=== PATIENT | female | born 1940 | race Hispanic/Latino ===

== ENCOUNTER 2017-06-06 09:50 | Inpatient (IN) | payer MEDICARE, OTHER ==
[2017-06-06 09:55] VITALS: BMI 21.0
[2017-06-06] MEDS ORDERED: Naproxen 550 mg Tab PO STA (10:41)
[2017-06-06] MEDS ORDERED: Naproxen 550 mg Tab PO ONE (10:46)
--- NOTE | 2017-06-06 11:17 | RAD ---
PROCEDURE: Radiographs of the pelvis and bilateral hips HISTORY: Left hip pain, evaluate for fracture COMPARISON: None. FINDINGS: BONES: The pelvic ring is intact. There is no acute displaced fracture or bone destruction. There is diffuse bone demineralization. JOINTS: There is mild degenerative osteoarthrosis in the hip joints, worse on the right. The sacroiliac joints are normal. SOFT TISSUES: Normal. OTHER FINDINGS: None. IMPRESSION: No acute displaced fracture or dislocation. Please note occult fractures cannot be excluded on plain radiographs. If there is a persistent clinical concern, an MRI of the hip may be performed for further evaluation.
--- NOTE | 2017-06-06 11:44 | C.PDOC ---
History Of Present Illness 76-year-old female presents to the emergency department with complaints of non- traumatic left hip pain that started three days ago. Pain is primarily in hip, radiates through buttock and down her left leg. She denies any falls or injuries. Patient also denies abdominal pain, flank pain, vomiting/diarrhea, dysuria/hematuria, fever. No other complaints at this time. Time Seen by Provider: 06/06/17 10:12 Chief Complaint (Nursing): Hip Pain History Per: Patient History/Exam Limitations: no limitations Onset/Duration Of Symptoms: Days (3) Current Symptoms Are (Timing): Still Present Severity: Moderate Past Medical History Reviewed: Historical Data, Nursing Documentation, Vital Signs Vital Signs: Last Vital Signs Temp 98.8 F 06/10/17 07:10 Pulse 75 06/10/17 07:10 Resp 18 06/10/17 07:10 BP 154/89 H 06/10/17 10:50 Pulse Ox 99 06/10/17 07:10 - Medical History PMH: Arthritis, Diabetes, HTN, Hypercholesterolemia, Osteoporosis - [facility] Procedures DX ULTRASOUND-DIGESTIVE (01/20/12) ESOPHAGOGASTRODUODENOSCOPY [EGD] W/CLOSED BIOPSY (01/20/12) Family History: States: No Known Family Hx - Social History Hx Tobacco Use: No Hx Alcohol Use: No Hx Substance Use: No - Immunization History Hx Tetanus Toxoid Vaccination: No Hx Influenza Vaccination: No Hx Pneumococcal Vaccination: No Review Of Systems Except As Marked, All Systems Reviewed And Found Negative. Constitutional: Negative for: Fever, Chills Respiratory: Negative for: Shortness of Breath Gastrointestinal: Negative for: Nausea, Vomiting, Abdominal Pain Musculoskeletal: Positive for: Other (Left hip pain). Negative for: Back Pain Neurological: Negative for: Weakness, Numbness Physical Exam - Physical Exam Appears: Well, Non-toxic, In Acute Distress (in moderate pain) Skin: Warm, Dry, No Rash Head: Atraumatic, Normacephalic Eye(s): bilateral: Normal Inspection Oral Mucosa: Moist Cardiovascular: Rhythm Regular, No Murmur Respiratory: Normal Breath Sounds, No Rales, No Rhonchi, No Wheezing Gastrointestinal/Abdominal: Normal Exam, Bowel Sounds, Soft, No Tenderness Back: Normal Inspection, No CVA Tenderness, No Vertebral Tenderness Extremity: No Pedal Edema, No Calf Tenderness, Capillary Refill (< 2 sec all digits ), No Deformity, No Swelling, Other (tenderness to palpation left gluteal and left hip area. ) Extremity: Left: Limited ROM To Joint (left hip), Bilateral: Atraumatic Pulses: Left Dorsalis Pedis: Normal, Right Dorsalis Pedis: Normal Neurological/Psych: Oriented x3, Normal Sensation ED Course And Treatment - Laboratory Results Result Diagrams: 06/09/17 07:18 06/09/17 07:18 O2 Sat by Pulse Oximetry: 98 (on RA) Pulse Ox Interpretation: Normal - Other Rad XR HIP X-Ray: Viewed By Me, Read By Radiologist Interpretation: Accession No. : [id number]. Patient Name / ID : HUEY Oscar / [id number]. Exam Date : 06/06/2017 10:45:17 ( Approved ). Study Comment : Sex / Age : F / 76Y. Creator : Milvia Zheng MD. Dictator : Milvia Zheng MD. [employer] He[employer] Installer : Manufacturing Quality Manager : Milvia Zheng MD. Approver2 : Report Date : 06/06/2017 11:16:37. My Comment : . PROCEDURE: Radiographs of the pelvis and bilateral hips. HISTORY: Left hip pain, evaluate for fracture. COMPARISON: None. FINDINGS: BONES: The pelvic ring is intact. There is no acute displaced fracture or bone destruction. There is diffuse bone demineralization. JOINTS: There is mild degenerative osteoarthrosis in the hip joints, worse on the right. The sacroiliac joints are normal. SOFT TISSUES: Normal. OTHER FINDINGS: None. IMPRESSION: No acute displaced fracture or dislocation. Please note occult fractures cannot be excluded on plain radiographs. If there is a persistent clinical concern, an MRI of the hip may be performed for further evaluation. - CT Scan/US CT PELVIS Other Rad Studies (CT/US): Read By Radiologist, Radiology Report Reviewed CT/US Interpretation: Accession No. : [id number]. Patient Name / ID : HUEY Oscar / [id number]. Exam Date : 06/06/2017 14:17:02 ( Approved ). Study Comment : Sex / Age : F / 76Y. Creator : Estela Maya. Dictator : Estela Maya. Hot Water He[employer] Installer : Manufacturing Quality Manager : Estela Maya. Approver2 : Report Date : 06/06/2017 15:18:23. My Comment : . PROCEDURE: CT Pelvis without contrast. HISTORY: LEFT HIP/ PELVIC PAIN. COMPARISON: None. TECHNIQUE: Contiguous axial images of the pelvis . No intravenous or oral contrast given. Coronal and sagittal reformats generated. Radiation dose: Total exam DLP = 233 mGy-cm. This CT exam was performed using one or more of the following dose reduction techniques: Automated exposure control, adjustment of the mA and/or kV according to patient size, and/or use of iterative reconstruction technique. FINDINGS: BLADDER: Moderately distended bladder otherwise unremarkable. REPRODUCTIVE ORGANS: Unremarkable. VISUALIZED BOWEL: Unremarkable. PERITONEUM: Unremarkable, as visualized. No free fluid. No free air. LYMPH NODES: Unremarkable. No enlarged lymph nodes. BONES: No fracture or focal lytic lesion. Few scattered benign-appearing bone islands -left sacral wing most notable. Bilateral sacroiliac sclerotic arthrosis to the right side greater than left. Inferior lumbar spondylosis, mild scoliosis and likely prominent disc bulging. Areas of relative mild osteopenia a benign-appearing are noted. No gross end of lytic lesions appreciated. VASCULATURE: Arterial vascular calcifications in each groin. OTHER FINDINGS: Mild bilateral superolateral hip joint space narrowing. No prominent spurring seen. IMPRESSION: No fracture or lytic lesion noted. The reason for patient's inability to walk is not appreciated on this exam. Mild lumbar spondylosis, disc space narrowing and disc bulging L4- 5. Bilateral sacroiliac sclerotic arthrosis right greater than left. Mild superolateral hip joint space narrowing ; study notable for paucity of significant appear hip joint spurring in this 76-year-old patient Progress Note: Patient given PO Naprosyn and Flexeril. PO Prednisone and IV morphine given due to perisistent pain. PT came and evaluated patient for walker training, however patient unable to ambulate with walker due to pain. Reevaluation Time: 12:45 Reassessment Condition: Unchanged (Patient unable to ambulate with walker after PO pain meds & prednisone. Blood work, UA, CT scan pelvis/hips ordered and reviewed.) - Physician Consult Information Physician Contacted: Boone Dodd Outcome Of Conversation: Discussed patient with Dr. Dodd, agrees with admission for intractable left hip/gluteal pain, inability to ambulate with walker. Orthopedic consult entered for Dr. Caceres. Disposition Counseled Patient/Family Regarding: Studies Performed, Diagnosis, Need For Followup, Rx Given - Disposition Disposition: HOME/ ROUTINE Disposition Time: 15:35 Condition: STABLE - POA Present On Arrival: None - Clinical Impression Clinical Impression: Piriformis syndrome of left side, Sciatic leg pain, Left hip pain, Intractable pain, Osteoarthritis, Unable to ambulate - Scribe Statement The provider has reviewed the documentation as recorded by the Scribe (Veena Mehta) All medical record entries made by the Scribe were at my direction and personally dictated by me. I have reviewed the chart and agree that the record accurately reflects my personal performance of the history, physical exam, medical decision making, and the department course for this patient. I have also personally directed, reviewed, and agree with the discharge instructions and disposition. Decision To Admit - Pt Status Changed To: Hospital Disposition Of: Observation - . Bed Request Type: Regular Admitting Physician: Boone Dodd Patient Diagnosis: Piriformis syndrome of left side, Sciatic leg pain, Left hip pain, Intractable pain, Unable to ambulate, Osteoarthritis
[2017-06-06] MEDS ORDERED: Sodium Chloride 0.9% 500 ML IV ONE ×2 (12:46→13:26)
[2017-06-06 13:43] LABS: BASO % 0.7 % (0.0-2.0); EOS % 0.1 % (0.0-4.0); HEMOGLOBIN 12.1 g/dL (11.0-16.0); LYMPH # 1.4 K/uL (1.0-4.3); LYMPH % 30.7 % (20.0-40.0); MEAN CELL VOLUME 92.9 fL (81.0-99.0); MEAN CORPUSCULAR HEMOGLOBIN 30.8 pg (27.0-31.0); MEAN CORPUSCULAR HGB CONC 33.2 g/dL (33.0-37.0); MEAN PLATELET VOLUME 8.8 fL (7.2-11.7); MONO # 0.2 K/uL (0.0-0.8); MONO % 4.3 % (0.0-10.0); NEUT # 2.9 K/uL (1.8-7.0); NEUT % 64.2 % (50.0-75.0); RBC 3.94 Mil/uL (3.80-5.20); RED CELL DISTRIBUTION WIDTH 13.1 % (11.5-14.5); WHITE BLOOD COUNT 4.5 K/uL (4.8-10.8)
[2017-06-06 13:59] LABS: ALB/GLOB RATIO 1.1 (1.0-2.1); ALBUMIN 3.8 g/dL (3.5-5.0); ALT/SGPT 26 U/L (9-52); AST/SGOT 23 U/L (14-36); BLOOD UREA NITROGEN 12 mg/dL (7-17); CALCIUM 8.3 mg/dl (8.6-10.4); GFR AFRICAN-AMERICAN > 60; GFR NON-AFRICAN AMERICAN > 60
[2017-06-06 14:21] LABS: SQUAMOUS EPITHIAL < 1 /hpf (0-5); URINE BILIRUBIN NEGATIVE (NEGATIVE); URINE BLOOD 1+ (NEGATIVE); URINE CLARITY Clear (Clear); URINE COLOR Straw (YELLOW); URINE GLUCOSE (UA) 1+ mg/dL (Normal); URINE LEUKOCYTE ESTERASE NEG Leu/uL (Negative); URINE NITRATE NEGATIVE (NEGATIVE); URINE PROTEIN NEGATIVE (NEGATIVE); URINE UROBILINOGEN NORMAL mg/dL (0.2-1.0)
--- NOTE | 2017-06-06 15:20 | CT ---
PROCEDURE: CT Pelvis without contrast HISTORY: LEFT HIP/PELVIC PAIN COMPARISON: None. TECHNIQUE: Contiguous axial images of the pelvis . No intravenous or oral contrast given. Coronal and sagittal reformats generated. Radiation dose: Total exam DLP = 233 mGy-cm. This CT exam was performed using one or more of the following dose reduction techniques: Automated exposure control, adjustment of the mA and/or kV according to patient size, and/or use of iterative reconstruction technique. FINDINGS: BLADDER: Moderately distended bladder otherwise unremarkable REPRODUCTIVE ORGANS: Unremarkable. VISUALIZED BOWEL: Unremarkable. PERITONEUM: Unremarkable, as visualized. No free fluid. No free air. LYMPH NODES: Unremarkable. No enlarged lymph nodes. BONES: No fracture or focal lytic lesion. Few scattered benign-appearing bone islands -left sacral wing most notable Bilateral sacroiliac sclerotic arthrosis to the right side greater than left Inferior lumbar spondylosis, mild scoliosis and likely prominent disc bulging. Areas of relative mild osteopenia a benign-appearing are noted. No gross end of lytic lesions appreciated. VASCULATURE: Arterial vascular calcifications in each groin OTHER FINDINGS: Mild bilateral superolateral hip joint space narrowing. No prominent spurring seen. IMPRESSION: No fracture or lytic lesion noted. The reason for patient's inability to walk is not appreciated on this exam. Mild lumbar spondylosis, disc space narrowing and disc bulging L4-5. Bilateral sacroiliac sclerotic arthrosis right greater than left. Mild superolateral hip joint space narrowing ; study notable for paucity of significant appear hip joint spurring in this 76-year-old patient
[2017-06-07] MEDS: (Novolog) Insulin Aspart, Recombinant 100 u/ml 10 ml vial SC SCH ×4 (06:56→21:33)
[2017-06-07] MEDS: Enoxaparin 40 mg Syringe SC SCH (09:21)
[2017-06-07] MEDS: Naproxen 275 mg Tab PO PRN (09:21)
--- NOTE | 2017-06-07 12:19 | CP.PCM.HP ---
Past Patient History - Past Social History Smoking Status: Never Smoked - CARDIAC Hx Hypercholesterolemia: Yes Hx Hypertension: Yes - NEUROLOGICAL Hx Paralysis: No - ENDOCRINE/METABOLIC Hx Diabetes Mellitus Type 2: Yes - HEMATOLOGICAL/ONCOLOGICAL Hx Blood Transfusions: No Hx Blood Transfusion Reaction: No - MUSCULOSKELETAL/RHEUMATOLOGICAL Hx Arthritis: Yes Hx Falls: No Hx Osteoporosis: Yes - PSYCHIATRIC Hx Substance Use: No - SURGICAL HISTORY Hx Surgeries: Yes (CATARACT, R KNEE, COLONOSCOY) - ANESTHESIA Hx Anesthesia: Yes Hx Anesthesia Reactions: No Hx Malignant Hyperthermia: No Meds Home Medications: Home Medication List Medication Instructions Recorded Confirmed Type Cyclobenzaprine [Cyclobenzaprine 10 mg PO BID PRN #15 tab 06/06/17 Rx HCl] Naproxen 375 mg PO BID PRN #25 tablet 06/06/17 Rx predniSONE [predniSONE Tab] 40 mg PO DAILY #6 tab 06/06/17 Rx Allergies/Adverse Reactions: Allergies Allergy/AdvReac Type Severity Reaction Status Date / Time No Known Allergies Allergy Verified 06/06/17 09:53 Results - Vital Signs Recent Vital Signs: Last Vital Signs Temp 98.3 F 06/07/17 08:20 Pulse 84 06/07/17 08:20 Resp 20 06/07/17 08:20 BP 131/75 06/07/17 09:20 Pulse Ox 98 06/07/17 08:20 - Labs Result Diagrams: 06/06/17 13:38 06/06/17 13:38 Labs: Laboratory Results - last 24 hr 06/06/17 06/06/17 06/06/17 13:38 13:38 14:11 WBC 4.5 L RBC 3.94 Hgb 12.1 Hct 36.6 MCV 92.9 MCH 30.8 MCHC 33.2 RDW 13.1 Plt Count 288 MPV 8.8 Neut % (Auto) 64.2 Lymph % (Auto) 30.7 Clark % (Auto) 4.3 Eos % (Auto) 0.1 Baso % (Auto) 0.7 Neut # 2.9 Lymph # 1.4 Clark # 0.2 Eos # 0.0 Baso # 0.0 Sodium 137 Potassium 3.8 Chloride 101 Carbon Dioxide 28 Anion Gap 11 BUN 12 Creatinine 0.6 L Est GFR ( Amer) > 60 Est GFR (Non-Af Amer) > 60 POC Glucose (mg/dL) Random Glucose 156 H Calcium 8.3 L Total Bilirubin 0.5 AST 23 ALT 26 Alkaline Phosphatase 63 Total Protein 7.3 Albumin 3.8 Globulin 3.4 Albumin/Globulin Ratio 1.1 Urine Color Straw Urine Clarity Clear Urine pH 7.0 Ur Specific Primrose 1.006 Urine Protein Negative Urine Glucose (UA) 1+ Urine Ketones Negative Urine Blood 1+ H Urine Nitrate Negative Urine Bilirubin Negative Urine Urobilinogen Normal Ur Leukocyte Esterase Neg Urine WBC (Auto) 1 Urine RBC (Auto) 2 Ur Squamous Epith Cells < 1 06/07/17 06/07/17 06:34 11:09 WBC RBC Hgb Hct MCV MCH MCHC RDW Plt Count MPV Neut % (Auto) Lymph % (Auto) Clark % (Auto) Eos % (Auto) Baso % (Auto) Neut # Lymph # Clark # Eos # Baso # Sodium Potassium Chloride Carbon Dioxide Anion Gap BUN Creatinine Est GFR ( Amer) Est GFR (Non-Af Amer) POC Glucose (mg/dL) 104 117 H Random Glucose Calcium Total Bilirubin AST ALT Alkaline Phosphatase Total Protein Albumin Globulin Albumin/Globulin Ratio Urine Color Urine Clarity Urine pH Ur Specific Primrose Urine Protein Urine Glucose (UA) Urine Ketones Urine Blood Urine Nitrate Urine Bilirubin Urine Urobilinogen Ur Leukocyte Esterase Urine WBC (Auto) Urine RBC (Auto) Ur Squamous Epith Cells
--- NOTE | 2017-06-07 15:25 | CP.PCM.CON ---
History of Present Illness - History of Present Illness History of Present Illness: Orthopedic consultation Dr. perez 76F complains of left sided gluteal pain shooting down her leg, and says the pain is just below knee on the outside of her leg. She denies any trauma falls. Denies history of this pain, denies history of back pain. Denies numbness/ tingling. She says the pain is worst when she is walking and the pain in her leg is so severe she can not walk. She says the pain is best lying on side with knees up. She denies groin pain. Denies any leg pain prior to this episode. No change in bowel or bladder habits. Review of Systems - Review of Systems All systems: reviewed and no additional remarkable complaints except - Constitutional Additional comments: no fever/chills/recent illness - Cardiovascular Additional comments: no CP - Musculoskeletal Musculoskeletal: As Per HPI - Integumentary Additional comments: no swelling/ redness - Neurological Neurological: As Per HPI - Hematologic/Lymphatic Hematologic: absent: As Per HPI, Easy Bleeding, Easy Bruising, Lymphadenopathy, Other Past Patient History - Past Medical History & Family History Past Medical History?: Yes Past Family History: Reviewed and not pertinent - Past Social History Smoking Status: Never Smoked - CARDIAC Hx Hypercholesterolemia: Yes Hx Hypertension: Yes - NEUROLOGICAL Hx Paralysis: No - ENDOCRINE/METABOLIC Hx Diabetes Mellitus Type 2: Yes - HEMATOLOGICAL/ONCOLOGICAL Hx Blood Transfusions: No Hx Blood Transfusion Reaction: No - MUSCULOSKELETAL/RHEUMATOLOGICAL Hx Arthritis: Yes Hx Falls: No Hx Osteoporosis: Yes - PSYCHIATRIC Hx Substance Use: No - SURGICAL HISTORY Hx Surgeries: Yes (CATARACT, R KNEE, COLONOSCOY) - ANESTHESIA Hx Anesthesia: Yes Hx Anesthesia Reactions: No Hx Malignant Hyperthermia: No Meds Home Medications: Home Medication List Medication Instructions Recorded Confirmed Type Cyclobenzaprine [Cyclobenzaprine 10 mg PO BID PRN #15 tab 06/06/17 Rx HCl] Naproxen 375 mg PO BID PRN #25 tablet 06/06/17 Rx predniSONE [predniSONE Tab] 40 mg PO DAILY #6 tab 06/06/17 Rx Allergies/Adverse Reactions: Allergies Allergy/AdvReac Type Severity Reaction Status Date / Time No Known Allergies Allergy Verified 06/06/17 09:53 - Medications Medications: Current Medications Cyclobenzaprine HCl (Flexeril) 10 mg PO BID PRN PRN Reason: Arthritis Enalapril Maleate (Vasotec) 20 mg PO DAILY [facility] Last Admin: 06/07/17 09:20 Dose: 20 mg Enoxaparin Sodium (Lovenox) 40 mg SC DAILY [facility] Last Admin: 06/07/17 09:21 Dose: 40 mg Insulin Aspart (Novolog) 0 unit SC ACHS [facility] PRN Reason: Protocol Last Admin: 06/07/17 12:21 Dose: Not Given Metformin HCl (Glucophage) 500 mg PO BID [facility] Last Admin: 06/07/17 09:20 Dose: 500 mg Morphine Sulfate (Morphine) 2 mg IVP Q4 PRN PRN Reason: pain Naproxen (Anaprox) 275 mg PO BID PRN PRN Reason: Pain, moderate (4-7) Last Admin: 06/07/17 09:21 Dose: 275 mg Prednisone (Prednisone Tab) 40 mg PO DAILY [facility] Last Admin: 06/07/17 09:20 Dose: 40 mg Rosuvastatin Calcium (Crestor) 5 mg PO QPM [facility] Physical Exam - Constitutional Appears: Well Additional comments: no acute distress sitting on EOB noted severe pain and reluctance to put left leg down when walking - Expanded Lower Extremities Exam Left Hip exam: full ROM (no pain with full active and passive motion of left hip, no crepitus) Knee exam: full ROM, normal inspection (non tender to knee, no erythema, no effusion, no lax to varus/valgus, no tenderness to knee/lower leg at area patient feels pain) - Neurological Exam Neurological exam: Alert, Oriented x3 - Expanded Neurological Exam Expanded Sensory exam: Lower Extremity Light Touch: Normal (bilaterally) Neuro motor strength exam: Left Lower Extremity: 4 (4/5 great toe ext, DF, 4+/5 PF, 5/5 knee flex/ext), Right Lower Extremity: 5 (DF/PF, great toe extension, knee flex/ext) DTR: Patellar Left: 2+, Patellar Right: 2+ - Psychiatric Exam Psychiatric exam: Normal Affect, Normal Mood - Skin Skin Exam: Dry, Intact, Normal Color, Warm Results - Vital Signs Recent Vital Signs: Last Vital Signs Temp 98.9 F 06/07/17 15:21 Pulse 103 H 06/07/17 15:21 Resp 18 06/07/17 15:21 BP 145/64 06/07/17 15:21 Pulse Ox 100 06/07/17 15:21 - Labs Result Diagrams: 06/06/17 13:38 06/06/17 13:38 Labs: Laboratory Results - last 24 hr 06/07/17 06/07/17 06:34 11:09 POC Glucose (mg/dL) 104 117 H Assessment & Plan (1) Lumbar back pain with radiculopathy affecting left lower extremity Assessment and Plan: left gluteal and LLE pain r/o spinal stenosis, disc disease, LLE radiculopathy minimal hip DJD on imaging not consistent with symptoms MRI lumbar spine thoracic xrays show ?small compression fractures but patient without mid back pain VTE proph plan PT/OT referral NSAIDs patient states she is anxious about pain during MRI, valium ordered x 1 d/w Dr. perez, agrees with above Status: Acute Radiology Interpretation - Radiology Interpretation #2 Interpretation: Patient Name / ID : HUEY Oscar / [id number] Exam Date : 06/07/2017 10:08:10 ( Approved ) Study Comment : Sex / Age : F / 76Y Creator : Bill Lyon RT Dictator : Marcial Neumann MD Shoulder Boner : [employer] Lab Technician : Marcial Neumann MD Approver2 : Report Date : 06/07/2017 10:38:32 My Comment : PROCEDURE: Cervical Spine Radiographs. HISTORY: Pain. COMPARISON: None. FINDINGS: BONES: Slight reversal of cervical curvature is identified. No definite fracture or spondylolisthesis is appreciated. Marked endplate degenerative changes are appreciate the mid to inferior cervical spine multiple levels particularly, particularly at the C6-7 level with prominent osteophytic ridging ridging accompanying this pattern. No destructive focal bony lesion is appreciated throughout. Multilevel facet joint degenerative arthropathy is appreciated diffusely. The amount process grossly appears intact. Mildly degenerated C1-2 articulation is appreciated the craniocervical junction appears intact. Prevertebral paraspinal soft tissues appear diffusely unremarkable. SOFT TISSUES: Normal. No prevertebral soft tissue swelling. OTHER FINDINGS: None. IMPRESSION: Slight reversal the cervical curvature without fracture or spondylolisthesis. Advanced multilevel cervical spondylosis is appreciate as well as multilevel facet joint arthropathy. Patient Name / ID : HUEY Oscar / [id number] Exam Date : 06/07/2017 10:07:04 ( Approved ) Study Comment : Sex / Age : F / 76Y Creator : Bill Lyon Dictator : Marcial Neumann MD Shoulder Boner : [employer] Lab Technician : Marcial Neumann MD Approver2 : Report Date : 06/07/2017 10:38:32 My Comment : HISTORY: LEFT LEG PAIN. ENTIRE SPINE. COMPARISON: Chest radiograph 02/05/2015. FINDINGS: BONES: A kyphoscoliotic deformity is appreciated at the upper mid thoracic spine without definite acute fracture or spondylolisthesis identified. Multilevel degenerative spondylosis appreciated diffusely. Likely minimal low mid thoracic spine compression fractures are identified causing a hyper kyphotic deformity increased in curvature compared to prior chest radiograph 02/05/2015. No destructive bony lesions appreciated focally. Diffuse osteopenia suggests osteoporosis. SOFT TISSUES: Normal. OTHER FINDINGS: None. IMPRESSION: No definite acute fracture or spondylolisthesis appreciated. A kyphoscoliotic deformity is appreciated with likely minimal mid thoracic spinal compression fractures identified as the etiology for hyper kyphotic deformity. atient Name / ID : HUEY Oscar / [id number] Exam Date : 06/07/2017 10:05:49 ( Approved ) Study Comment : Sex / Age : F / 76Y Creator : Marcial Neumann MD Dictator : Marcial Neumann MD Shoulder Boner : [employer] Lab Technician : Marcial Neumann MD Approver2 : Report Date : 06/07/2017 16:12:20 My Comment : PROCEDURE: Radiographs of the Lumbar Spine. HISTORY: left leg pain COMPARISON: No prior. FINDINGS: BONES: Minimal levoscoliotic deformity. No acute fracture. Spondylolisthesis at L4-5 is seen with L4 anterior to L5 by less than 1 cm. This is likely on the basis of facet joint degenerative arthropathy as no obvious spondylolysis is evident. However oblique lumbar spine radiographs or cross-sectional imaging would be superior than standard radiography in evaluating for possible spondylolysis. Multilevel spondylosis appears mild DISC SPACES: Disc heights appear adequately preserved as well as vertebral body heights. OTHER FINDINGS: Diffuse osteopenia suggests osteoporosis. IMPRESSION: Multilevel lumbar spondylosis appears mild. Limited grade 1 spondylolisthesis L4-5. Diffuse osteopenia suggests osteoporosis. - Radiology Interpretation #3 Interpretation: Patient Name / ID : HUEY SIDHU E / [id number] Exam Date : 06/06/2017 14:17:02 ( Approved ) Study Comment : Sex / Age : F / 76Y Creator : Estela Maya Dictator : Estela Maya Shoulder Boner : [employer] Lab Technician : Estela Maya Approver2 : Report Date : 06/06/2017 15:18:23 My Comment : PROCEDURE: CT Pelvis without contrast HISTORY: LEFT HIP/PELVIC PAIN COMPARISON: None. TECHNIQUE: Contiguous axial images of the pelvis . No intravenous or oral contrast given. Coronal and sagittal reformats generated. Radiation dose: Total exam DLP = 233 mGy-cm. This CT exam was performed using one or more of the following dose reduction techniques: Automated exposure control, adjustment of the mA and/or kV according to patient size, and/or use of iterative reconstruction technique. FINDINGS: BLADDER: Moderately distended bladder otherwise unremarkable REPRODUCTIVE ORGANS: Unremarkable. VISUALIZED BOWEL: Unremarkable. PERITONEUM: Unremarkable, as visualized. No free fluid. No free air. LYMPH NODES: Unremarkable. No enlarged lymph nodes. BONES: No fracture or focal lytic lesion. Few scattered benign-appearing bone islands - left sacral wing most notable Bilateral sacroiliac sclerotic arthrosis to the right side greater than left Inferior lumbar spondylosis, mild scoliosis and likely prominent disc bulging. Areas of relative mild osteopenia a benign-appearing are noted. No gross end of lytic lesions appreciated. VASCULATURE: Arterial vascular calcifications in each groin OTHER FINDINGS: Mild bilateral superolateral hip joint space narrowing. No prominent spurring seen. IMPRESSION: No fracture or lytic lesion noted. The reason for patient's inability to walk is not appreciated on this exam. Mild lumbar spondylosis, disc space narrowing and disc bulging L4-5. Bilateral sacroiliac sclerotic arthrosis right greater than left. Mild superolateral hip joint space narrowing ; study notable for paucity of significant appear hip joint spurring in this 76-year-old patient
--- NOTE | 2017-06-07 15:36 | RAD ---
PROCEDURE: Cervical Spine Radiographs. HISTORY: Pain. COMPARISON: None. FINDINGS: BONES: Slight reversal of cervical curvature is identified. No definite fracture or spondylolisthesis is appreciated. Marked endplate degenerative changes are appreciate the mid to inferior cervical spine multiple levels particularly, particularly at the C6-7 level with prominent osteophytic ridging ridging accompanying this pattern. No destructive focal bony lesion is appreciated throughout. Multilevel facet joint degenerative arthropathy is appreciated diffusely. The amount process grossly appears intact. Mildly degenerated C1-2 articulation is appreciated the craniocervical junction appears intact. Prevertebral paraspinal soft tissues appear diffusely unremarkable. SOFT TISSUES: Normal. No prevertebral soft tissue swelling. OTHER FINDINGS: None. IMPRESSION: Slight reversal the cervical curvature without fracture or spondylolisthesis. Advanced multilevel cervical spondylosis is appreciate as well as multilevel facet joint arthropathy.
--- NOTE | 2017-06-07 15:39 | RAD ---
HISTORY: LEFT LEG PAIN. ENTIRE SPINE. COMPARISON: Chest radiograph 02/05/2015. FINDINGS: BONES: A kyphoscoliotic deformity is appreciated at the upper mid thoracic spine without definite acute fracture or spondylolisthesis identified. Multilevel degenerative spondylosis appreciated diffusely. Likely minimal low mid thoracic spine compression fractures are identified causing a hyper kyphotic deformity increased in curvature compared to prior chest radiograph 02/05/2015. No destructive bony lesions appreciated focally. Diffuse osteopenia suggests osteoporosis. SOFT TISSUES: Normal. OTHER FINDINGS: None. IMPRESSION: No definite acute fracture or spondylolisthesis appreciated. A kyphoscoliotic deformity is appreciated with likely minimal mid thoracic spinal compression fractures identified as the etiology for hyper kyphotic deformity.
--- NOTE | 2017-06-07 16:19 | RAD ---
PROCEDURE: Radiographs of the Lumbar Spine. HISTORY: left leg pain COMPARISON: No prior. FINDINGS: BONES: Minimal levoscoliotic deformity. No acute fracture. Spondylolisthesis at L4-5 is seen with L4 anterior to L5 by less than 1 cm. This is likely on the basis of facet joint degenerative arthropathy as no obvious spondylolysis is evident. However oblique lumbar spine radiographs or cross-sectional imaging would be superior than standard radiography in evaluating for possible spondylolysis. Multilevel spondylosis appears mild DISC SPACES: Disc heights appear adequately preserved as well as vertebral body heights. OTHER FINDINGS: Diffuse osteopenia suggests osteoporosis. IMPRESSION: Multilevel lumbar spondylosis appears mild. Limited grade 1 spondylolisthesis L4-5. Diffuse osteopenia suggests osteoporosis.
--- NOTE | 2017-06-07 18:37 | MRI ---
PROCEDURE: MR LUMBAR SPINE WITHOUT CONTRAST HISTORY: LBP r/o LLE radiculopathy, stenosis COMPARISON: None available. TECHNIQUE: Multiecho multiplanar sequences were performed through the lumbar spine without the use of intravenous contrast. FINDINGS: The lumbar curvature is minimally ultra interrupted by grade 1 spondylolisthesis at L4-5 with L4 slightly anterior to L5 by less than 1 cm. This appears to be on the basis of facet arthropathy as spondylolysis is not definitively shown. Diffuse disc desiccation is appreciated with minimal disc height loss identified at L3-4. To body heights are normal. Benign hemangioma is appreciated L5 as well as L1 with no suspicious matter signal changes seen throughout the exam. Incidental benign hemangiomas are seen at T12 to body as well. The conus medullaris appears normal in intrinsic signal terminating at the T12 inferior endplate. Prevertebral paraspinal soft tissues appear diffusely on remarkable. Instill note is made of what appear to be parapelvic cysts at the left greater than right kidney midpole regions. T12-L1: No disc herniation, spinal canal stenosis or neural foraminal narrowing. Incidentally, T11-12 is essentially identical to this level. L1-2: No disc herniation, spinal canal stenosis or neural foraminal narrowing. A tiny right L1 nerve root cysts is appreciated at the distal foramen. L2-3: No disc herniation or spinal canal stenosis. [id number] facet joint degenerative changes are identified with limited disc bulging into the neural foramina causing borderline bilateral neural foraminal stenoses. L3-4: No disc herniation is identified with limited disc bulging present and moderate facet joint degenerative change. Borderline degenerative neural foraminal stenoses are identified. L4-5: No disc herniation is appreciated. Limited spondylolisthesis in gross foot facet joint degenerative arthropathy are identified with asymmetric left greater than right lateral recess stenosis identified. Moderate left and mild right neural foraminal stenosis is appreciated though the overall asymmetry felt to be a function of asymmetric facet joint degenerative definitive change. L5-S1: A generalized disc bulge appreciate with a small central disc protrusion indenting the ventral thecal sac and encroaching the descending bilateral proximal exiting L5 and descending S1 nerve roots without significant generalized central canal stenosis. Gross facet joint degenerative arthropathy contributes to this pattern with mild bilateral neural foraminal stenoses identified. OTHER FINDINGS: None. IMPRESSION: No severe stenosis or large disc herniation throughout the exam. Multilevel degenerative disc disease is appreciate as well as facet arthropathy seen worst at the inferior lumbar spine with multilevel lateral recess stenoses appreciated. A grade 1 spondylolisthesis identified minimally at L4-5, on a degenerative basis with left greater than right lateral recess stenosis appreciated but no generalized central canal stenosis. A small L5 cm protrusion overlies generalized disc bulging with both disc findings encroaching the descending the exiting bilateral L5 nerve roots minimally as well as the descending bilateral S1 nerve roots.
[2017-06-08] MEDS: (Novolog) Insulin Aspart, Recombinant 100 u/ml 10 ml vial SC SCH ×4 (08:04→21:49)
[2017-06-08] MEDS: Enoxaparin 40 mg Syringe SC SCH (09:36)
[2017-06-08] MEDS: Naproxen 275 mg Tab PO PRN (11:08)
--- NOTE | 2017-06-08 15:41 | CP.PCM.PN ---
Subjective - Date & Time of Evaluation Date of Evaluation: 06/08/17 Time of Evaluation: 15:36 - Subjective Subjective: Patient states she still can not put weight on her left leg. She says the medication is not controlling the pain. She lives alone, only has a couple stairs into home. Family at bedside. Review of Systems - Review of Systems All systems: reviewed and no additional remarkable complaints except - Cardiovascular Cardiovascular: UNREMARKABLE - Respiratory Respiratory: UNREMARKABLE - Gastrointestinal Gastrointestinal: UNREMARKABLE - Musculoskeletal Musculoskeletal: As Par HPI - Integumentary Integumentary: UNREMARKABLE - Neurological Neurological: As Per HPI - Endocrine Endocrine: UNREMARKABLE - Hematologic/Lymphatic Hematologic: UNREMARKABLE Objective - Vital Signs/Intake and Output Vital Signs (last 24 hours): Temp Pulse Resp BP Pulse Ox 97.4 F L 86 20 137/70 99 06/08/17 07:29 06/08/17 09:30 06/08/17 07:29 06/08/17 09:32 06/08/17 07:29 Intake and Output: 06/08/17 06/08/17 06:59 18:59 Intake Total 150 500 Balance 150 500 - Medications Medications: Current Medications Celecoxib (Celebrex) 200 mg PO BID [facility] Cyclobenzaprine HCl (Flexeril) 10 mg PO BID PRN PRN Reason: Arthritis Enalapril Maleate (Vasotec) 20 mg PO DAILY [facility] Last Admin: 06/08/17 09:32 Dose: 20 mg Enoxaparin Sodium (Lovenox) 40 mg SC DAILY [facility] Last Admin: 06/08/17 09:36 Dose: 40 mg Insulin Aspart (Novolog) 0 unit SC ACHS [facility] PRN Reason: Protocol Last Admin: 06/08/17 11:19 Dose: Not Given Metformin HCl (Glucophage) 500 mg PO BID [facility] Last Admin: 06/08/17 09:32 Dose: 500 mg Morphine Sulfate (Morphine) 2 mg IVP Q4 PRN PRN Reason: pain Prednisone (Prednisone Tab) 40 mg PO DAILY [facility] Last Admin: 06/08/17 09:32 Dose: 40 mg Rosuvastatin Calcium (Crestor) 5 mg PO QPM [facility] Last Admin: 06/07/17 18:02 Dose: 5 mg - Labs Labs: 06/06/17 13:38 06/06/17 13:38 - Constitutional Appears: Well, No Acute Distress - Extremities Exam Additional comments: LLE normal inspection, no swelling, non tender calves soft NT neg homans - Back Exam Back Exam: NORMAL INSPECTION Additional comments: B gluteal tenderness - Neurological Exam Neurological Exam: Alert, Awake, Oriented x3 Neuro motor strength exam: Left Lower Extremity: 4, Right Lower Extremity: 5 - Psychiatric Exam Psychiatric exam: Normal Affect, Normal Mood - Skin Skin Exam: Dry, Intact, Normal Color, Warm Assessment and Plan (1) Lumbar back pain with radiculopathy affecting left lower extremity Assessment & Plan: MRI reviewed, consistent with symptoms No acute pathology appreciated Recommend cont flexeril, will try celebrex instead of naproxen, lyrica recommend PT/OT recommend pain mgmt consultation (would be as outpatient) d/w Dr. Caceres, agrees with above no orthopedic intervention indicated Status: Acute Radiology Interpretation - Radiology Interpretation #2 Interpretation: Patient Name / ID : HUEY [id number] / [id number] Exam Date : 06/07/2017 17:18:33 ( Approved ) Study Comment : Sex / Age : F / 76Y Creator : Marcial Neumann MD Dictator : Marcial Neumann MD Program Control Analyst : Inspector Final Assembly Conveyor Line : Marical Neumann MD Approver2 : Report Date : 06/07/2017 18:35:45 My Comment : PROCEDURE: MR LUMBAR SPINE WITHOUT CONTRAST HISTORY: LBP r/o LLE radiculopathy, stenosis COMPARISON: None available. TECHNIQUE: Multiecho multiplanar sequences were performed through the lumbar spine without the use of intravenous contrast. FINDINGS: The lumbar curvature is minimally ultra interrupted by grade 1 spondylolisthesis at L4-5 with L4 slightly anterior to L5 by less than 1 cm. This appears to be on the basis of facet arthropathy as spondylolysis is not definitively shown. Diffuse disc desiccation is appreciated with minimal disc height loss identified at L3-4. To body heights are normal. Benign hemangioma is appreciated L5 as well as L1 with no suspicious matter signal changes seen throughout the exam. Incidental benign hemangiomas are seen at T12 to body as well. The conus medullaris appears normal in intrinsic signal terminating at the T12 inferior endplate. Prevertebral paraspinal soft tissues appear diffusely on remarkable. Instill note is made of what appear to be parapelvic cysts at the left greater than right kidney midpole regions. T12-L1: No disc herniation, spinal canal stenosis or neural foraminal narrowing. Incidentally, T11-12 is essentially identical to this level. L1-2: No disc herniation, spinal canal stenosis or neural foraminal narrowing. A tiny right L1 nerve root cysts is appreciated at the distal foramen. L2-3: No disc herniation or spinal canal stenosis. [id number] facet joint degenerative changes are identified with limited disc bulging into the neural foramina causing borderline bilateral neural foraminal stenoses. L3-4: No disc herniation is identified with limited disc bulging present and moderate facet joint degenerative change. Borderline degenerative neural foraminal stenoses are identified. L4-5: No disc herniation is appreciated. Limited spondylolisthesis in gross foot facet joint degenerative arthropathy are identified with asymmetric left greater than right lateral recess stenosis identified. Moderate left and mild right neural foraminal stenosis is appreciated though the overall asymmetry felt to be a function of asymmetric facet joint degenerative definitive change. L5-S1: A generalized disc bulge appreciate with a small central disc protrusion indenting the ventral thecal sac and encroaching the descending bilateral proximal exiting L5 and descending S1 nerve roots without significant generalized central canal stenosis. Gross facet joint degenerative arthropathy contributes to this pattern with mild bilateral neural foraminal stenoses identified. OTHER FINDINGS: None. IMPRESSION: No severe stenosis or large disc herniation throughout the exam. Multilevel degenerative disc disease is appreciate as well as facet arthropathy seen worst at the inferior lumbar spine with multilevel lateral recess stenoses appreciated. A grade 1 spondylolisthesis identified minimally at L4-5, on a degenerative basis with left greater than right lateral recess stenosis appreciated but no generalized central canal stenosis. A small L5 cm protrusion overlies generalized disc bulging with both disc findings encroaching the descending the exiting bilateral L5 nerve roots minimally as well as the descending bilateral S1 nerve roots.
--- NOTE | 2017-06-08 18:48 | CP.PCM.PN ---
Subjective - Date & Time of Evaluation Date of Evaluation: 06/08/17 Time of Evaluation: 18:48 Objective - Vital Signs/Intake and Output Vital Signs (last 24 hours): Temp Pulse Resp BP Pulse Ox 98.4 F 82 18 158/74 H 98 06/08/17 15:17 06/08/17 15:17 06/08/17 15:17 06/08/17 15:17 06/08/17 15:17 Intake and Output: 06/08/17 06/08/17 06:59 18:59 Intake Total 150 500 Balance 150 500 - Medications Medications: Current Medications Celecoxib (Celebrex) 200 mg PO BID [facility] Last Admin: 06/08/17 17:48 Dose: 200 mg Cyclobenzaprine HCl (Flexeril) 10 mg PO BID PRN PRN Reason: Arthritis Enalapril Maleate (Vasotec) 20 mg PO DAILY [facility] Last Admin: 06/08/17 09:32 Dose: 20 mg Enoxaparin Sodium (Lovenox) 40 mg SC DAILY [facility] Last Admin: 06/08/17 09:36 Dose: 40 mg Insulin Aspart (Novolog) 0 unit SC ACHS [facility] PRN Reason: Protocol Last Admin: 06/08/17 17:35 Dose: 2 unit Metformin HCl (Glucophage) 500 mg PO BID [facility] Last Admin: 06/08/17 17:48 Dose: 500 mg Morphine Sulfate (Morphine) 2 mg IVP Q4 PRN PRN Reason: pain Prednisone (Prednisone Tab) 40 mg PO DAILY [facility] Last Admin: 06/08/17 09:32 Dose: 40 mg Pregabalin (Lyrica) 75 mg PO BID [facility] Last Admin: 06/08/17 17:48 Dose: 75 mg Rosuvastatin Calcium (Crestor) 5 mg PO QPM [facility] Last Admin: 06/08/17 17:48 Dose: 5 mg - Labs Labs: 06/06/17 13:38 06/06/17 13:38
[2017-06-09 08:02] LABS: BASO % 0.4 % (0.0-2.0); EOS % 0.3 % (0.0-4.0); HEMOGLOBIN 11.7 g/dL (11.0-16.0); LYMPH # 3.3 K/uL (1.0-4.3); LYMPH % 45.5 % (20.0-40.0); MEAN CELL VOLUME 91.9 fL (81.0-99.0); MEAN CORPUSCULAR HEMOGLOBIN 31.2 pg (27.0-31.0); MEAN CORPUSCULAR HGB CONC 33.9 g/dL (33.0-37.0); MEAN PLATELET VOLUME 8.6 fL (7.2-11.7); MONO # 0.5 K/uL (0.0-0.8); MONO % 6.5 % (0.0-10.0); NEUT # 3.4 K/uL (1.8-7.0); NEUT % 47.3 % (50.0-75.0); NRBC % 0.3 % (0.0-2.0); RBC 3.76 Mil/uL (3.80-5.20); RED CELL DISTRIBUTION WIDTH 12.6 % (11.5-14.5)
[2017-06-09 08:05] LABS: WHITE BLOOD COUNT 7.2 K/uL (4.8-10.8)
[2017-06-09] MEDS: (Novolog) Insulin Aspart, Recombinant 100 u/ml 10 ml vial SC SCH ×4 (08:35→22:46)
[2017-06-09 09:13] LABS: BLOOD UREA NITROGEN 20 mg/dL (7-17); CALCIUM 8.6 mg/dl (8.6-10.4); GFR AFRICAN-AMERICAN > 60; GFR NON-AFRICAN AMERICAN > 60
[2017-06-09] MEDS: Enoxaparin 40 mg Syringe SC SCH (10:12)
--- NOTE | 2017-06-09 15:43 | CP.PCM.PN ---
Subjective - Date & Time of Evaluation Date of Evaluation: 06/09/17 Time of Evaluation: 15:43 - Subjective Subjective: Patient states the pain is getting a better, but she is still having pain. Pain is still in left lateral leg. Denies numbness/tingling. most of pain still localized to bach. Says she doesn't notice much difference in pain since starting new medication. Review of Systems - Review of Systems All systems: reviewed and no additional remarkable complaints except - Cardiovascular Cardiovascular: UNREMARKABLE - Respiratory Respiratory: UNREMARKABLE - Genitourinary Genitourinary: UNREMARKABLE - Musculoskeletal Musculoskeletal: As Par HPI - Integumentary Integumentary: UNREMARKABLE - Neurological Neurological: As Per HPI - Hematologic/Lymphatic Hematologic: UNREMARKABLE Objective - Vital Signs/Intake and Output Vital Signs (last 24 hours): Temp Pulse Resp BP Pulse Ox 97.8 F 80 20 160/87 H 97 06/09/17 07:30 06/09/17 07:30 06/09/17 07:30 06/09/17 10:12 06/09/17 07:30 Intake and Output: 06/09/17 06/09/17 06:59 18:59 Intake Total 480 400 Balance 480 400 - Medications Medications: Current Medications Celecoxib (Celebrex) 200 mg PO BID [facility] Last Admin: 06/09/17 10:21 Dose: 200 mg Cyclobenzaprine HCl (Flexeril) 10 mg PO BID PRN PRN Reason: Arthritis Last Admin: 06/09/17 10:11 Dose: 10 mg Enalapril Maleate (Vasotec) 20 mg PO DAILY [facility] Last Admin: 06/09/17 10:12 Dose: 20 mg Enoxaparin Sodium (Lovenox) 40 mg SC DAILY [facility] Last Admin: 06/09/17 10:12 Dose: 40 mg Insulin Aspart (Novolog) 0 unit SC ACHS [facility] PRN Reason: Protocol Last Admin: 06/09/17 12:10 Dose: Not Given Metformin HCl (Glucophage) 500 mg PO BID [facility] Last Admin: 06/09/17 10:12 Dose: 500 mg Morphine Sulfate (Morphine) 2 mg IVP Q4 PRN PRN Reason: pain Prednisone (Prednisone Tab) 40 mg PO DAILY [facility] Last Admin: 06/09/17 10:12 Dose: 40 mg Pregabalin (Lyrica) 75 mg PO BID [facility] Last Admin: 06/09/17 10:12 Dose: 75 mg Rosuvastatin Calcium (Crestor) 5 mg PO QPM [facility] Last Admin: 06/08/17 17:48 Dose: 5 mg - Labs Labs: 06/09/17 07:18 06/09/17 07:18 - Constitutional Appears: Well, No Acute Distress - Head Exam Head Exam: ATRAUMATIC - Respiratory Exam Respiratory Exam: NORMAL BREATHING PATTERN - Extremities Exam Additional comments: calves soft NT neg homans sensation intact BLE - Back Exam Back Exam: paraspinal tenderness - Neurological Exam Neurological Exam: Alert, Awake, Oriented x3 Neuro motor strength exam: Left Lower Extremity: 4 (with pain), Right Lower Extremity: 5 - Psychiatric Exam Psychiatric exam: Normal Affect, Normal Mood - Skin Skin Exam: Dry, Intact, Normal Color, Warm Assessment and Plan (1) Lumbar back pain with radiculopathy affecting left lower extremity Assessment & Plan: PT/OT NSaids lyrica flexeril PT/OT daily VTE proph no ortho intervention indicated recommend pain mgmt consult (as outpt, not available inpt) d/w Dr. perez, agrees with above Status: Acute
--- NOTE | 2017-06-09 15:55 | CP.PCM.PN ---
Subjective - Date & Time of Evaluation Date of Evaluation: 06/09/17 Time of Evaluation: 15:52 Objective - Vital Signs/Intake and Output Vital Signs (last 24 hours): Temp Pulse Resp BP Pulse Ox 97.8 F 80 20 160/87 H 97 06/09/17 07:30 06/09/17 07:30 06/09/17 07:30 06/09/17 10:12 06/09/17 07:30 Intake and Output: 06/09/17 06/09/17 06:59 18:59 Intake Total 480 400 Balance 480 400 - Medications Medications: Current Medications Celecoxib (Celebrex) 200 mg PO BID [facility] Last Admin: 06/09/17 10:21 Dose: 200 mg Cyclobenzaprine HCl (Flexeril) 10 mg PO BID PRN PRN Reason: Arthritis Last Admin: 06/09/17 10:11 Dose: 10 mg Enalapril Maleate (Vasotec) 20 mg PO DAILY [facility] Last Admin: 06/09/17 10:12 Dose: 20 mg Enoxaparin Sodium (Lovenox) 40 mg SC DAILY [facility] Last Admin: 06/09/17 10:12 Dose: 40 mg Insulin Aspart (Novolog) 0 unit SC ACHS [facility] PRN Reason: Protocol Last Admin: 06/09/17 12:10 Dose: Not Given Metformin HCl (Glucophage) 500 mg PO BID [facility] Last Admin: 06/09/17 10:12 Dose: 500 mg Morphine Sulfate (Morphine) 2 mg IVP Q4 PRN PRN Reason: pain Prednisone (Prednisone Tab) 40 mg PO DAILY [facility] Last Admin: 06/09/17 10:12 Dose: 40 mg Pregabalin (Lyrica) 75 mg PO BID [facility] Last Admin: 06/09/17 10:12 Dose: 75 mg Rosuvastatin Calcium (Crestor) 5 mg PO QPM [facility] Last Admin: 06/08/17 17:48 Dose: 5 mg - Labs Labs: 06/09/17 07:18 06/09/17 07:18
[2017-06-10] MEDS: (Novolog) Insulin Aspart, Recombinant 100 u/ml 10 ml vial SC SCH ×2 (08:36→13:06)
[2017-06-10 09:49] VITALS: PULSE 75; RESP 18; TEMP 98.8
[2017-06-10] MEDS: Enoxaparin 40 mg Syringe SC SCH (10:50)
[2017-06-10 10:51] VITALS: BP 154/89
--- NOTE | 2017-06-10 18:01 | CP.PCM.PN ---
Subjective - Date & Time of Evaluation Date of Evaluation: 06/10/17 Time of Evaluation: 11:00 - Subjective Subjective: alert, awake, no sob or chest pains. Objective - Vital Signs/Intake and Output Vital Signs (last 24 hours): Temp Pulse Resp BP Pulse Ox 98.8 F 75 18 154/89 H 99 06/10/17 07:10 06/10/17 07:10 06/10/17 07:10 06/10/17 10:50 06/10/17 07:10 Intake and Output: 06/10/17 06/10/17 06:59 18:59 Intake Total 495 400 Balance 495 400 - Labs Labs: 06/09/17 07:18 06/09/17 07:18 Assessment and Plan - Assessment and Plan (Free Text) Assessment: Patient is seen and examined. Alert, awake, complaints of left leg pain. Cleared by ortho for discharge home. Discussed with DR Dodd, plan to discharge home with home care, home PT for unsteady gait. Advised to follow up with PMD IN 1 WEEK.
[2017-06-12 04:50] VITALS: O2SAT 98
== END 2017-06-10 14:50 | disposition home health service (06) | DRG 552 ==
LOC: C.ER 09:50 → C.9E 15:35 → C.6T 22:56 → OBSVTOIN 06-08 16:23
PROVIDERS: ADMIT Internal Medicine Critical Care Medicine; ATTEND Internal Medicine Critical Care Medicine
DX: M43.16 Spondylolisthesis, lumbar region (principal); E11.9 Type 2 diabetes mellitus without complications; M41.9 Scoliosis, unspecified; G57.02 Lesion of sciatic nerve, left lower limb; I10 Essential (primary) hypertension; M47.26 Other spondylosis with radiculopathy, lumbar region; M47.812 Spondylosis without myelopathy or radiculopathy, cervical region; M48.061 Spinal stenosis, lumbar region without neurogenic claudication; M51.16 Intervertebral disc disorders with radiculopathy, lumbar region; M81.0 Age-related osteoporosis without current pathological fracture; E78.00 Pure hypercholesterolemia, unspecified